=== PATIENT | male | born 1980 | race Caucasian/White ===

== ENCOUNTER 2019-01-16 01:46 | Emergency (ER) | payer SELFPAY ==
[2019-01-16 02:29] VITALS: BP 138/80; PULSE 67; TEMP 98; BMI 31.1
--- NOTE | 2019-01-16 02:30 | PDOC ---
History of Present Illness - General Chief Complaint: Pain Stated Complaint: ABD PAIN/DIARRHEA Time Seen by Provider: 01/16/19 02:30 - History of Present Illness Initial Comments: 01/16/19 02:56 The patient is a 38 year old male with a history of asthma who presents for evaluation of nausea, vomiting, abdominal pain, and diarrhea. The patient reports a 3 day history of diarrhea and nausea with associated non-bloody, non- bilious vomiting as well as subjective fevers at home. He noted epigastric and LUQ crampy abdominal pain today prompting his presentation to the ED for further evaluation. He denies any sick contacts and otherwise denies chills, SOB, chest pain, lower abdominal pain, testicular pain, or changes with urination. Past History - Past Medical History Allergies/Adverse Reactions: Allergies Allergy/AdvReac Type Severity Reaction Status Date / Time Fish Containing Products Allergy Intermediate Difficulty Verified 01/16/19 02:29 Breathing peanut Allergy Intermediate Difficulty Verified 01/16/19 02:29 Breathing Home Medications: Ambulatory Orders Dexamethasone [Decadron -] 8 mg PO TID #30 tablet 12/27/15 Diphenhydramine [Benadryl Capsule -] 50 mg PO QID PRN #0 capsule 12/27/15 Ranitidine [Zantac -] 150 mg PO BID #30 tablet 12/27/15 metroNIDAZOLE [Flagyl -] 500 mg PO TID #21 tablet 01/16/19 Asthma: Yes - Immunization History Immunization Up to Date: No - Suicide/Smoking/Psychosocial Hx Smoking History: Never smoked Have you smoked in the past 12 months: No Information on smoking cessation initiated: No Hx Alcohol Use: Yes (Socially) Drug/Substance Use Hx: No Review of Systems - Review of Systems Comments:: 01/16/19 02:59 Constitutional: Subjective Fever, No chills, fatigue, malaise HEENT: No Rhinorrhea, nasal congestion, visual changes Cardiovascular: No chest pain, syncope, palpitations, lightheadedness Respiratory: No Cough, SOB, Hemoptysis, Gastrointestinal: Abdominal pain, Nausea, Vomiting, Diarrhea, No Constipation, Melena Genitourinary: No Dysuria, Frequency, Urgency, Hesitancy, Hematuria, Flank pain Musculoskeletal: No Myalgia, arthralgia Skin: No rashes, itching, bruising, pallor Neurologic: No Headache, Dizziness, Numbness, Weakness, or Tingling Psychiatric: No Hallucinations. No SI or HI *Physical Exam - Vital Signs Last Vital Signs Temp Pulse Resp BP Pulse Ox 98 F 67 18 138/80 99 01/16/19 01:46 01/16/19 01:46 01/16/19 01:46 01/16/19 01:46 01/16/19 01:46 - Physical Exam Comments: 01/16/19 03:00 General Appearance: Nourished. No Apparent Distress HEENT: No Pharyngeal Erythema, Tonsillar Exudate, Tonsillar Erythema Neck: No Cervical Lymphadenopathy Respiratory/Chest: Lungs Clear, Normal Breath Sounds. No Crackles, Rales, Rhonchi, Wheezing Cardiovascular: Regular Rhythm, Regular Rate. No Murmur, Gallops, Rubs Gastrointestinal/Abdominal: Normal Bowel Sounds, Soft. Mild epigastric tenderness to palpation on exam. No Guarding, Rebound, Musculoskeletal: No CVA Tenderness Extremity: Normal Capillary Refill Integumentary: Normal Color, Dry, Warm Neurologic: Fully Oriented, Alert, Normal Mood/Affect, Normal Response, ED Treatment Course - LABORATORY CBC & Chemistry Diagram: 01/16/19 02:45 01/16/19 02:45 Medical Decision Making - Medical Decision Making 01/16/19 03:01 The patient is a 38 year old male with a history of asthma who presents for evaluation of nausea, vomiting, abdominal pain, and diarrhea. Differential includes but is not limited to: Gastritis, Gastroenteritis, Pancreatitis, Infectious, Metabolic Derangement. Given the patient's history and physical exam, we will obtain a cbc, cmp, lipase to evaluate further. We will treat with iv fluids, zofran, pepcid, maalox and continue to monitor and reassess while here in the ED. 01/16/19 04:25 CBC, cmp, lipase are unremarkable. The patient was reassessed and reports improvement in their symptoms. We well treat the patient with flagyl. We are comfortable discharging the patient home in stable condition. Patient and family made aware of impression and plan, return precautions discussed including but not limited to worsening pain or symptoms, fevers, or signs of infection, chest pain, respiratory distress, inability to tolerate oral intake, dehydration, syncope, or neurologic changes. The patient is to follow up with PMD and as recommended within 1 week, follow up information provided and the patient will call for an appointment. The patient is to take Flagyl as instructed for duration of time and continue with supportive care, avoid triggers and precipitants. Patient is safe for outpatient follow-up. *DC/Admit/Observation/Transfer Diagnosis at time of Disposition: Abdominal pain Qualifiers: Abdominal location: unspecified location Qualified Code(s): R10.9 - Unspecified abdominal pain - Discharge Dispostion Disposition: HOME Condition at time of disposition: Stable Decision to Admit order: No - Prescriptions Prescriptions: metroNIDAZOLE [Flagyl -] 500 mg PO TID #21 tablet - Referrals - Patient Instructions Printed Discharge Instructions: DI for Abdominal Pain-Adult Additional Instructions: 1) Please follow-up with your primary care doctor in the next 2-3 days. Please call tomorrow to schedule a follow up appointment. If you cannot follow up with your doctor within 1 week please return to the Emergency Department for any urgent issues. 2) Your laboratory results were normal here in the ER. 3) If you have any worsening of symptoms or any other concerns please return to the ER immediately. Return if worsening symptoms including fevers, headache, vomiting, visual or hearing disturbances, abdominal pain, chest pain, shortness of breath, syncope, dehydration, inability to take things by mouth/vomiting, altered mental status, or worsening concerning symptoms. 4) Please continue taking your home medications as directed. Your medications on discharge include Flagyl. Side effects may include upset stomach, abdominal pain, vomiting, or diarrhea. Do not drink alcohol with your medications. - Post Discharge Activity
[2019-01-16] MEDS ORDERED: FAMOTIDINE 20 MG/50 ML IVPB 20 MG/50 ML MG IVPB ONE ×2 (02:37→02:56)
[2019-01-16] MEDS ORDERED: ONDANSETRON 4 MG/2 ML VIAL IVPUSH ONE (02:37)
[2019-01-16] MEDS ORDERED: SODIUM CHLORIDE 1,000 ML IV STA (02:37)
[2019-01-16] MEDS ORDERED: MAG HYDROX/AL HYDROX/SIMETH 30 ML UNIT-DOSE CUP PO ONE (02:38)
--- NOTE | 2019-01-16 02:40 | PDOC ---
Attending Attestation - Resident Resident Name: Carlos Carranza - ED Attending Attestation I have performed the following: I have examined & evaluated the patient, The case was reviewed & discussed with the resident, I agree w/resident's findings & plan - HPI HPI: 01/16/19 04:49 Pt comes with abdominal pain after eating at a [employer] 3 days ago. 2 days of doarrhea. He thinks he was food poisones, and he had a heavy cream dessert and knows that some of the diarrhea is due to lactose intolerance. 01/16/19 04:50 Pt is afebrile and he has no N/V no dysuria and no other complaints. - Physicial Exam PE: 01/16/19 04:50 Agree with resident exam Abd soft Nt ND. - Medical Decision Making 01/16/19 04:51 Home with flagyl and PMD follow up.
[2019-01-16] MEDS ORDERED: ONDANSETRON 4 MG/2 ML VIAL ONE (02:56)
[2019-01-16] MEDS ORDERED: MAG HYDROX/AL HYDROX/SIMETH 30 ML UNIT-DOSE CUP ONE (02:56)
[2019-01-16 02:59] LABS: BASO % 0.5 % (0-2.0); EOS % 6.4 % (0-4.5); HEMOGLOBIN 13.2 GM/dL (11.7-16.9); LYMPH % 40.4 % (8-40); MCH 30.6 pg (25.7-33.7); MCHC 33.9 g/dl (32.0-35.9); MEAN CELL VOLUME 90.2 fl (80-96); MEAN PLT VOLUME 8.6 fl (7.5-11.1); MONO % 10.5 % (3.8-10.2); NEUT % 42.2 % (42.8-82.8); PLATELET COUNT 183 K/MM3 (134-434); RBC 4.32 M/mm3 (4.00-5.60); RDW 13.3 % (11.9-15.9); WHITE BLOOD COUNT 5.5 K/mm3 (4.0-10.0)
[2019-01-16 03:55] LABS: ALBUMIN 3.3 g/dl (3.4-5.0); ALK PHOS 100 U/L (45-117); ANION GAP 5 MMOL/L (8-16); BILIRUBIN,TOTAL 0.3 mg/dL (0.2-1); BLOOD UREA NITROGEN 11 mg/dL (7-18); CALCIUM 7.8 mg/dL (8.5-10.1); CHLORIDE 108 mmol/L (98-107); CO2 23 mmol/L (21-32); CREATININE 0.9 mg/dL (0.55-1.3); GLUCOSE,RANDOM 105 mg/dL (74-106); LIPASE 147 U/L (73-393); POTASSIUM 3.7 mmol/L (3.5-5.1); SGOT/AST 38 U/L (15-37); SGPT/ALT 72 U/L (13-61); SODIUM 137 mmol/L (136-145); TOT PROT 7.2 g/dl (6.4-8.2)
[2019-01-16] MEDS ORDERED: metroNIDAZOLE 250 MG TABLET PO ONE (04:15)
[2019-01-16] MEDS ORDERED: metroNIDAZOLE 250 MG TABLET ONE (04:49)
== END 2019-01-16 04:55 | disposition home or self-care (01) ==
LOC: JER 01:46
PROC: 3E033GC Introduction of Other Therapeutic Substance into Peripheral Vein, Percutaneous Approach (ICD-10-PCS; principal; 2019-01-16)
PROC: 3E033GC Introduction of Other Therapeutic Substance into Peripheral Vein, Percutaneous Approach (ICD-10-PCS; 2019-01-16)
DX: R10.9 Unspecified abdominal pain (principal)
CPT/HCPCS: 36415; 80053; 83690; 85025; 99281-25; J7030

== ENCOUNTER 2022-02-26 22:41 | Emergency (ER) | payer OTHER ==
[2022-02-26 22:47] VITALS: BP 149/85; PULSE 75; TEMP 98.1; BMI 33.9
[2022-02-27] MEDS ORDERED: KETOROLAC TROMETHAMINE 30 MG/1 ML VIAL IM ONE (00:08)
[2022-02-27] MEDS ORDERED: KETOROLAC TROMETHAMINE 30 MG/1 ML VIAL ONE (00:13)
== END 2022-02-27 01:01 | disposition home or self-care (01) ==
LOC: JERFT 22:41 → JER 22:41
PROC: 3E023GC Introduction of Other Therapeutic Substance into Muscle, Percutaneous Approach (ICD-10-PCS; principal; 2022-02-26)
DX: S39.012A Strain of muscle, fascia and tendon of lower back, initial encounter (principal); S63.602A Unspecified sprain of left thumb, initial encounter; X50.0XXA Overexertion from strenuous movement or load, initial encounter
CPT/HCPCS: 73110-TC-LT-FY; 73130-TC-LT-FY; 99284-25